=== PATIENT | female | born 1945 | race African-American/Black ===

== ENCOUNTER 2017-09-15 10:04 | Inpatient (IN) | payer MEDICARE, MEDICAID ==
[~2017-09-15] VITALS: Ht 167.6 cm; Wt 72.6 kg
[~2017-09-15 10:04] MED LIST: AGGR PO; AMLO10TA80 PO; ATOR40TA70 PO; DOCU250C69 PO
[2017-09-15] MEDS ORDERED: SODIUM CHLORIDE 0.9% 1,000 ML IV ONE (10:26)
[2017-09-15 11:10] LABS: BASOPHILS % 1.1 % (0.0-2.0); EOSINOPHILS % 0.6 % (0.0-5.0); HEMATOCRIT. 43.5 % (36.0-48.0); HEMOGLOBIN. 14.4 g/dL (12.0-16.0); LYMPHOCYTES % 20.7 % (20.0-50.0); MEAN CORPUSCULAR HEMOGLOBIN 31.2 pg (28.0-32.0); MEAN CORPUSCULAR VOLUME 94.5 fL (81.0-99.0); MONOCYTES % 5.3 % (2.0-8.0); NEUTROPHILS % 72.3 % (40.0-76.0); PLATELET 210 x1000/uL (130-400); RED CELL DISTRIBUTION WIDTH 13.7 % (11.6-14.6)
[2017-09-15 11:13] LABS: CLARITY URINE CLEAR (CLEAR); COLOR URINE DARK YELLOW (YELLOW); KETONES URINE 2+ (NEGATIVE); LEUKOCYTE ESTERASE URINE 1+ (NEGATIVE); NITRITE URINE NEGATIVE (NEGATIVE); OCCULT BLOOD URINE 1+ (NEGATIVE); PH URINE 5.5 (4.5-8.0); PROTEIN URINE TRACE (NEGATIVE); SPECIFIC GRAVITY URINE 1.023 (1.005-1.030)
[2017-09-15 11:15] LABS: CHLORIDE 119 mEq/L (98-107); INR 1.1; PARTIAL THROMBOPLASTIN TIME 24.7 sec (23.4-31.0); PROTHROMBIN TIME 11.8 sec (9.4-11.6)
[2017-09-15 11:26] LABS: CREATINE KINASE MB FRACTION 0.8 ng/mL (0.5-3.6)
[2017-09-15] MEDS ORDERED: CEFTRIAXONE 1 G PREMIX 50 ML IV ONE (12:45)
[2017-09-15] MEDS ORDERED: ASPIRIN 300MG SUPP PR ONE (14:45)
[2017-09-15 16:40] VITALS: BP 135/75
[2017-09-15] MEDS ORDERED: DOCUSATE SODIUM 100MG CAPSULE PO PRN (19:00)
[2017-09-15] MEDS ORDERED: DOCUSATE SODIUM 250MG CAPSULE PO PRN (19:00)
[2017-09-15] MEDS ORDERED: TRAMADOL 50MG TABLET PO PRN (19:00)
[2017-09-15] MEDS ORDERED: LORAZEPAM 2MG/ML CPJ IV PRN (19:00)
[2017-09-15] MEDS ORDERED: IPRATROPIUM/ALBUTEROL 0.5-3(2.5)MG/3ML NEB INH PRN (19:00)
[2017-09-15] MEDS ORDERED: GUAIFENESIN 200MG/10ML SUGAR FREE UDC PO PRN (19:00)
[2017-09-15] MEDS ORDERED: MAGNESIUM/ALUMINUM HYDROXIDE/SIMETHICONE 30ML UDC PO PRN (19:00)
[2017-09-15] MEDS ORDERED: MORPHINE SULFATE 4 MG/ML CPJ (NOT FOR IM USE) IV PRN (19:00)
[2017-09-15] MEDS ORDERED: ACETAMINOPHEN 325MG TABLET PO PRN (19:00)
[2017-09-15] MEDS ORDERED: ONDANSETRON HCL 4MG/2ML VIAL IV PRN (19:00)
[2017-09-15] MEDS ORDERED: DEXTROSE 50% WATER 50ML SYRINGE IV PRN (19:00)
[2017-09-15] MEDS ORDERED: CLONIDINE 0.1MG TABLET PO PRN (19:00)
[2017-09-15] MEDS ORDERED: DIPHENHYDRAMINE 50MG/ML VIAL IV PRN (19:00)
[2017-09-15 20:00] VITALS: BP 103/42
[2017-09-15] MEDS ORDERED: PIPERACILLIN/TAZ 3.375G PREMIX 50 ML IV SCH (21:00)
[2017-09-15] MEDS: BLOOD SUGAR DIAGNOSTIC STRIP TEST SCH (21:00)
[2017-09-15] MEDS: INSULIN LISPRO 100 UNITS/ML SUBCUT SCH (21:00)
[2017-09-15] MEDS: PIPERACILLIN/TAZ 3.375G PREMIX 50 ML IV SCH (22:11)
[2017-09-15] MEDS: SODIUM CHLORIDE 0.9% 1,000 ML IV SCH (22:14)
[2017-09-15] MEDS: ASPIRIN/DIPYRIDAMOLE 25MG/200MG CAPSULE SA PO SCH (22:19)
[2017-09-15] MEDS: ATORVASTATIN CALCIUM 40MG TABLET PO SCH (22:20)
[2017-09-15] MEDS: AMLODIPINE 10MG TABLET PO SCH (22:20)
[2017-09-15] MEDS ORDERED: POLYETHYLENE GLYCOL 3350 (17GM) 1 DOSE PACK PO PRN (23:00)
[2017-09-16] VITALS (7 sets, daily range): BP systolic 119–140; BP diastolic 59–77
[2017-09-16] MEDS: IPRATROPIUM/ALBUTEROL 0.5-3(2.5)MG/3ML NEB HHN SCH ×7 (01:45→20:41)
[2017-09-16] MEDS: PIPERACILLIN/TAZ 3.375G PREMIX 50 ML IV SCH ×3 (05:42→23:01)
[2017-09-16] MEDS: BLOOD SUGAR DIAGNOSTIC STRIP TEST SCH ×4 (06:47→23:02)
[2017-09-16] MEDS: INSULIN LISPRO 100 UNITS/ML SUBCUT SCH ×4 (07:50→23:02)
[2017-09-16] MEDS: SODIUM CHLORIDE 0.9% 1,000 ML IV SCH (09:31)
[2017-09-16] MEDS: ASPIRIN/DIPYRIDAMOLE 25MG/200MG CAPSULE SA PO SCH ×2 (09:33→17:21)
[2017-09-16] MEDS: AMLODIPINE 10MG TABLET PO SCH (09:33)
[2017-09-16 13:05] LABS: BASOPHILS % 0.7 % (0.0-2.0); EOSINOPHILS % 1.5 % (0.0-5.0); HEMATOCRIT. 42.9 % (36.0-48.0); HEMOGLOBIN. 14.2 g/dL (12.0-16.0); LYMPHOCYTES % 31.2 % (20.0-50.0); MEAN CORPUSCULAR HEMOGLOBIN 31.2 pg (28.0-32.0); MEAN CORPUSCULAR VOLUME 94.4 fL (81.0-99.0); MEAN PLATELET VOLUME 10.3 fl (7.4-10.4); MONOCYTES % 7.8 % (2.0-8.0); NEUTROPHILS % 58.8 % (40.0-76.0); PLATELET 178 x1000/uL (130-400); RED BLOOD CELL COUNT 4.54 mill/uL (4.2-5.4); RED CELL DISTRIBUTION WIDTH 13.7 % (11.6-14.6)
[2017-09-16 13:18] LABS: CHLORIDE 122 mEq/L (98-107)
[2017-09-16 13:30] LABS: LDL CHOLESTEROL 125 mg/dL (5-100)
[2017-09-16 13:32] LABS: HDL CHOLESTEROL 34 mg/dL (40-59)
[2017-09-16] MEDS: SODIUM CHLORIDE 0.45% 1,000 ML IV SCH ×2 (15:11→20:44)
[2017-09-16 19:55] LABS: CHLORIDE 124 mEq/L (98-107)
[2017-09-16] MEDS: ATORVASTATIN CALCIUM 40MG TABLET PO SCH (23:01)
[2017-09-17] VITALS: BP 123/69
[2017-09-17 01:04] LABS: CHLORIDE 124 mEq/L (98-107)
[2017-09-17 04:00] VITALS: BP 136/58
[2017-09-17] MEDS: IPRATROPIUM/ALBUTEROL 0.5-3(2.5)MG/3ML NEB HHN SCH ×5 (04:47→20:55)
[2017-09-17] MEDS: PIPERACILLIN/TAZ 3.375G PREMIX 50 ML IV SCH ×3 (06:34→21:08)
[2017-09-17] MEDS: BLOOD SUGAR DIAGNOSTIC STRIP TEST SCH ×4 (06:34→20:35)
[2017-09-17 08:00] VITALS: BP 119/56
[2017-09-17] MEDS: INSULIN LISPRO 100 UNITS/ML SUBCUT SCH ×4 (08:36→20:36)
[2017-09-17] MEDS: ASPIRIN/DIPYRIDAMOLE 25MG/200MG CAPSULE SA PO SCH ×2 (08:36→18:15)
[2017-09-17] MEDS: AMLODIPINE 10MG TABLET PO SCH (08:36)
[2017-09-17 12:00] VITALS: BP 101/52
[2017-09-17] MEDS: SODIUM CHLORIDE 0.45% 1,000 ML IV SCH (13:36)
[2017-09-17 16:00] VITALS: BP 107/55
[2017-09-17] MEDS ORDERED: POTASSIUM CHLORIDE 20MEQ TABLET SR PO SCH (19:45)
[2017-09-17 20:00] VITALS: BP 106/52
[2017-09-17] MEDS: ATORVASTATIN CALCIUM 40MG TABLET PO SCH (20:35)
[2017-09-18] VITALS: BP 104/52
[2017-09-18] MEDS: IPRATROPIUM/ALBUTEROL 0.5-3(2.5)MG/3ML NEB HHN SCH ×6 (00:15→20:00)
[2017-09-18 04:00] VITALS: BP 105/50
[2017-09-18] MEDS: PIPERACILLIN/TAZ 3.375G PREMIX 50 ML IV SCH ×3 (06:33→21:16)
[2017-09-18] MEDS: BLOOD SUGAR DIAGNOSTIC STRIP TEST SCH ×4 (07:20→21:11)
[2017-09-18 08:00] VITALS: BP 131/52
[2017-09-18] MEDS: SODIUM CHLORIDE 0.45% 1,000 ML IV SCH (09:21)
[2017-09-18] MEDS: ASPIRIN/DIPYRIDAMOLE 25MG/200MG CAPSULE SA PO SCH ×2 (09:21→17:45)
[2017-09-18] MEDS: AMLODIPINE 10MG TABLET PO SCH (09:22)
[2017-09-18] MEDS: INSULIN LISPRO 100 UNITS/ML SUBCUT SCH ×4 (09:22→21:19)
[2017-09-18 12:00] VITALS: BP 107/72
[2017-09-18 15:34] LABS: BASOPHILS % 1.3 % (0.0-2.0); CHLORIDE 118 mEq/L (98-107); EOSINOPHILS % 6.6 % (0.0-5.0); HEMATOCRIT. 43.1 % (36.0-48.0); HEMOGLOBIN. 14.1 g/dL (12.0-16.0); LYMPHOCYTES % 36.6 % (20.0-50.0); MEAN CORPUSCULAR HEMOGLOBIN 30.8 pg (28.0-32.0); MEAN CORPUSCULAR VOLUME 94.3 fL (81.0-99.0); MEAN PLATELET VOLUME 10.1 fl (7.4-10.4); NEUTROPHILS % 48.5 % (40.0-76.0); PLATELET 176 x1000/uL (130-400); RED BLOOD CELL COUNT 4.57 mill/uL (4.2-5.4); RED CELL DISTRIBUTION WIDTH 13.2 % (11.6-14.6)
[2017-09-18 15:56] VITALS: BP 121/61
[2017-09-18 20:00] VITALS: BP 116/67
[2017-09-18] MEDS: ATORVASTATIN CALCIUM 40MG TABLET PO SCH (21:11)
[2017-09-19] VITALS: BP 110/69
[2017-09-19] MEDS: IPRATROPIUM/ALBUTEROL 0.5-3(2.5)MG/3ML NEB HHN SCH ×6 (04:00→20:00)
[2017-09-19 04:02] VITALS: BP 105/70
[2017-09-19] MEDS: PIPERACILLIN/TAZ 3.375G PREMIX 50 ML IV SCH ×2 (06:29→14:16)
[2017-09-19 07:23] LABS: BASOPHILS % 0.7 % (0.0-2.0); CHLORIDE 112 mEq/L (98-107); EOSINOPHILS % 8.5 % (0.0-5.0); HEMATOCRIT. 40.8 % (36.0-48.0); HEMOGLOBIN. 13.5 g/dL (12.0-16.0); LYMPHOCYTES % 36.7 % (20.0-50.0); MEAN CORPUSCULAR VOLUME 93.9 fL (81.0-99.0); MEAN PLATELET VOLUME 10.1 fl (7.4-10.4); MONOCYTES % 6.5 % (2.0-8.0); NEUTROPHILS % 47.6 % (40.0-76.0); PLATELET 163 x1000/uL (130-400); RED BLOOD CELL COUNT 4.35 mill/uL (4.2-5.4); RED CELL DISTRIBUTION WIDTH 13.4 % (11.6-14.6)
[2017-09-19 07:43] VITALS: BP 123/66
[2017-09-19] MEDS: ASPIRIN/DIPYRIDAMOLE 25MG/200MG CAPSULE SA PO SCH ×2 (08:47→18:50)
[2017-09-19] MEDS: BLOOD SUGAR DIAGNOSTIC STRIP TEST SCH ×4 (08:48→21:31)
[2017-09-19] MEDS: SODIUM CHLORIDE 0.45% 1,000 ML IV SCH (08:48)
[2017-09-19] MEDS: AMLODIPINE 10MG TABLET PO SCH (08:48)
[2017-09-19] MEDS: INSULIN LISPRO 100 UNITS/ML SUBCUT SCH ×4 (08:49→21:31)
[2017-09-19 12:16] VITALS: BP 121/58
[2017-09-19] MEDS ORDERED: ACETAMINOPHEN 650MG/20.3ML UDC PO PRN (15:30)
[2017-09-19 20:00] VITALS: BP 143/67
[2017-09-19] MEDS: ATORVASTATIN CALCIUM 40MG TABLET PO SCH (20:55)
[2017-09-20] VITALS: BP 113/65
[2017-09-20 04:00] VITALS: BP_SYST 102; BP_SYST 143; BP_DIAS 40; BP_DIAS 67
[2017-09-20] MEDS: BLOOD SUGAR DIAGNOSTIC STRIP TEST SCH ×4 (06:45→22:06)
[2017-09-20] MEDS: INSULIN LISPRO 100 UNITS/ML SUBCUT SCH ×4 (07:50→22:06)
[2017-09-20 08:00] VITALS: BP 119/66
[2017-09-20] MEDS: IPRATROPIUM/ALBUTEROL 0.5-3(2.5)MG/3ML NEB HHN SCH ×5 (08:00→20:32)
[2017-09-20] MEDS: MULTIVITAMINS,THER W-MINERALS TABLET PO SCH (09:00)
[2017-09-20] MEDS: ASCORBIC ACID 500 MG TABLET PO SCH ×2 (09:00→22:10)
[2017-09-20] MEDS: ZINC SULFATE 220 MG ( 50 ) CAPSULE PO SCH (09:00)
[2017-09-20] MEDS: ASPIRIN/DIPYRIDAMOLE 25MG/200MG CAPSULE SA PO SCH ×2 (09:12→18:29)
[2017-09-20] MEDS: AMLODIPINE 10MG TABLET PO SCH (09:13)
[2017-09-20 11:34] VITALS: BP 118/67
[2017-09-20 20:00] VITALS: BP 108/71
[2017-09-20] MEDS: ATORVASTATIN CALCIUM 20MG TABLET PO SCH (23:32)
[2017-09-21] VITALS (7 sets, daily range): BP systolic 109–118; BP diastolic 47–79
[2017-09-21] MEDS: IPRATROPIUM/ALBUTEROL 0.5-3(2.5)MG/3ML NEB HHN SCH ×6 (04:00→20:14)
[2017-09-21] MEDS: BLOOD SUGAR DIAGNOSTIC STRIP TEST SCH ×4 (06:50→21:00)
[2017-09-21] MEDS: MULTIVITAMINS,THER W-MINERALS TABLET PO SCH (07:42)
[2017-09-21] MEDS: INSULIN LISPRO 100 UNITS/ML SUBCUT SCH ×4 (07:42→21:00)
[2017-09-21] MEDS: ZINC SULFATE 220 MG ( 50 ) CAPSULE PO SCH (07:43)
[2017-09-21] MEDS: ASCORBIC ACID 500 MG TABLET PO SCH ×2 (07:43→21:05)
[2017-09-21] MEDS: ASPIRIN/DIPYRIDAMOLE 25MG/200MG CAPSULE SA PO SCH ×2 (07:43→18:23)
[2017-09-21] MEDS: AMLODIPINE 10MG TABLET PO SCH (08:01)
[2017-09-21 08:51] LABS: *AMPHETAMINES SCREEN URINE NEGATIVE (NEGATIVE)
[2017-09-21 08:56] LABS: *BARBITURATES SCREEN URINE NEGATIVE (NEGATIVE); *COCAINE SCREEN URINE NEGATIVE (NEGATIVE)
[2017-09-21 09:00] LABS: *BENZODIAZEPINES SCREEN URINE NEGATIVE (NEGATIVE); METHADONE URINE SCREEN NEGATIVE (NEGATIVE); OPIATES URINE SCREEN NEGATIVE (NEGATIVE)
[2017-09-21 09:01] LABS: CANNABINOID URINE SCREEN NEGATIVE (NEGATIVE); PHENCYCLIDINE URINE SCREEN NEGATIVE (NEGATIVE)
[2017-09-21 12:50] LABS: AMMONIA 64 uMol/L (<32)
[2017-09-21 13:01] LABS: T4 FREE 0.99 ng/dL (0.76-1.46)
[2017-09-21 13:07] LABS: FOLIC ACID (FOLATE) SERUM >20 ng/mL ng/mL (>5.38)
[2017-09-21 13:19] LABS: VITAMIN B12 SERUM 1955 pg/mL (211-911)
[2017-09-21] MEDS ORDERED: OR220 PO (13:35)
[2017-09-21] MEDS ORDERED: DOCU-138 PO (13:35)
[2017-09-21] MEDS ORDERED: POLY17PO3 PO (13:35)
[2017-09-21] MEDS ORDERED: ATOR20TA PO (13:35)
[2017-09-21] MEDS ORDERED: AMLO10TA80 PO (13:35)
[2017-09-21] MEDS: ATORVASTATIN CALCIUM 20MG TABLET PO SCH (21:05)
[2017-09-22] VITALS: BP 120/65
[2017-09-22] MEDS: IPRATROPIUM/ALBUTEROL 0.5-3(2.5)MG/3ML NEB HHN SCH ×2 (00:48→04:49)
[2017-09-22 05:09] VITALS: BP 125/56
[2017-09-22] MEDS: BLOOD SUGAR DIAGNOSTIC STRIP TEST SCH ×2 (07:20→12:28)
[2017-09-22] MEDS: ASCORBIC ACID 500 MG TABLET PO SCH (08:05)
[2017-09-22] MEDS: INSULIN LISPRO 100 UNITS/ML SUBCUT SCH ×2 (08:05→12:29)
[2017-09-22] MEDS: ASPIRIN/DIPYRIDAMOLE 25MG/200MG CAPSULE SA PO SCH (08:06)
[2017-09-22] MEDS: ZINC SULFATE 220 MG ( 50 ) CAPSULE PO SCH (08:06)
[2017-09-22] MEDS: MULTIVITAMINS,THER W-MINERALS TABLET PO SCH (08:06)
[2017-09-22] MEDS: AMLODIPINE 10MG TABLET PO SCH (08:11)
[2017-09-22 08:17] VITALS: BP 114/70
[2017-09-22 12:30] VITALS: BP 152/68
[2017-09-22] MEDS ORDERED: LACTULOSE 20G/30ML UDC PO SCH (14:00)
== END 2017-09-22 13:15 | disposition home health service (06) | DRG 291 ==
LOC: ER 10:25 → 6WST 14:37 → EDBEDREQ 14:39 → EDBEDREQTM 14:39 → ENRESERV 15:24
PROVIDERS: ADMIT Internal Medicine; ATTEND Internal Medicine
DX: I11.0 Hypertensive heart disease with heart failure (principal); G82.50 Quadriplegia, unspecified; G92 Toxic encephalopathy; N39.0 Urinary tract infection, site not specified; E87.0 Hyperosmolality and hypernatremia; R41.4 Neurologic neglect syndrome; I69.354 Hemiplegia and hemiparesis following cerebral infarction affecting left non-dominant side; I50.23 Acute on chronic systolic (congestive) heart failure; K58.9 Irritable bowel syndrome, unspecified; R62.7 Adult failure to thrive; E86.0 Dehydration; M85.80 Other specified disorders of bone density and structure, unspecified site; E11.9 Type 2 diabetes mellitus without complications; E78.5 Hyperlipidemia, unspecified; R26.9 Unspecified abnormalities of gait and mobility; H53.469 Homonymous bilateral field defects, unspecified side; B96.1 Klebsiella pneumoniae [K. pneumoniae] as the cause of diseases classified elsewhere; L89.90 Pressure ulcer of unspecified site, unspecified stage; M16.11 Unilateral primary osteoarthritis, right hip; R13.10 Dysphagia, unspecified; R47.1 Dysarthria and anarthria; Z79.82 Long term (current) use of aspirin; Z93.1 Gastrostomy status; Z79.899 Other long term (current) drug therapy
CPT/HCPCS: 36415; 70450; 70551; 71045; 73502; 80048; 80053; 80061; 80305; 81003; 82140; 82553; 82607; 82746; 82962; 83036; 83880; 84439; 84443; 84481; 84484; 85025; 85610; 85730; 87077; 87086; 87186; 92610; 93005; 93970; 94640; 96361; 96365; 97110; 97162; 97166; 97530; 99285; A6261; J0696; J1815; J2543; J7030; J7620